=== PATIENT | male | born 1930 ===

== ENCOUNTER 2017-05-09 08:05 | Day surgery (SDC) | payer MEDICARE ==
[2017-05-09 09:44] VITALS: BMI 19.3
[2017-05-09 10:30] LABS: BASO # 0.1 K/uL (0.0-0.2); BASO % 0.6 % (0.0-2.0); EOS # 0.1 K/uL (0.0-0.7); EOS % 0.6 % (0.0-4.0); HEMOGLOBIN 13.2 g/dL (12.0-18.0); LYMPH # 1.4 K/uL (1.0-4.3); LYMPH % 14.4 % (20.0-40.0); MEAN CELL VOLUME 90.1 fL (80.0-94.0); MEAN CORPUSCULAR HEMOGLOBIN 29.8 pg (27.0-31.0); MEAN CORPUSCULAR HGB CONC 33.1 g/dL (33.0-37.0); MEAN PLATELET VOLUME 12.4 fL (7.2-11.7); MONO # 0.8 K/uL (0.0-0.8); MONO % 8.5 % (0.0-10.0); NEUT # 7.2 K/uL (1.8-7.0); NEUT % 75.9 % (50.0-75.0); RBC 4.44 Mil/uL (4.40-5.90); RED CELL DISTRIBUTION WIDTH 14.1 % (11.5-14.5); WHITE BLOOD COUNT 9.5 K/uL (4.8-10.8)
[2017-05-09 10:46] LABS: ALBUMIN 3.5 g/dL (3.5-5.0)
[2017-05-09 10:49] LABS: GFR AFRICAN-AMERICAN > 60; GFR NON-AFRICAN AMERICAN > 60
[2017-05-09 10:50] LABS: ALB/GLOB RATIO 0.9 (1.0-2.1); ALT/SGPT 68 U/L (21-72); AST/SGOT 147 U/L (17-59); BLOOD UREA NITROGEN 25 mg/dL (9-20); CALCIUM 9.3 mg/dl (8.6-10.4)
[2017-05-09] MEDS ORDERED: Rocuronium 10 mg/ml (10 ml) ONE (11:14)
[2017-05-09] MEDS ORDERED: Propofol 10 mg/ml Inj (20 ML) ONE (11:14)
[2017-05-09] MEDS ORDERED: Succinylcholine Chloride 20 mg/ml Syr (5 ml) IV ONE (11:23)
--- NOTE | 2017-05-09 11:37 | CP.SDSHP ---
Same Day Surgery H & P - History Proposed Procedure: EGDEUSERCP Pre-Op Diagnosis: Biliary stricture, Chronic pancreatitis - Previous Medical/Surgical History Previous Surgical History: ERCP with stent - Allergies Allergies: Allergies No Known Allergies Allergy (Verified 01/27/17 09:27) - Physical Exam General Appearance: nl Vital Signs: Vital Signs 05/09/17 10:19 Temperature 97.6 F Pulse Rate 71 Respiratory 19 Rate Blood Pressure 139/66 O2 Sat by Pulse 99 Oximetry Mental Status: Alert & Oriented x3 Neuro: WNL Heart: WNL Lungs: WNL GI: WNL - {Optional Preform as Required} Abdomen: WNL - Impression Impression: Pancreatitis. Biliary stricture. Gallstones Pt. Evaluated Today:Candidate for Anesthesia & Procedure: Yes - Date & Time Date: 05/09/17 Time: 11:37 Short Stay Discharge - Short Stay Discharge Admitting Diagnosis/Reason for Visit: AUTOIMMUNE PANCREATITIS,PANCREATIC LESION Disposition: HOME/ ROUTINE
[2017-05-09] MEDS ORDERED: Indomethacin 50 MG Suppository PR ONE (14:21)
[2017-05-09] MEDS ORDERED: Iohexol 240 (50 ml) ONE (14:21)
[2017-05-09 14:56] VITALS: RESP 12; O2SAT 100
[2017-05-09 15:01] VITALS: PULSE 61
[2017-05-09 15:06] VITALS: BP 159/74; TEMP 98
--- NOTE | 2017-05-10 11:48 | RAD ---
PROCEDURE: HISTORY: Biliary stent exchange - plastic for metal COMPARISON: None TECHNIQUE: Total fluoroscopic time utilized during the procedure: 39.7 seconds. Total dose 0.47962 mGy cm squared FINDINGS: Submitted images from the current procedure: 12 Please refer to the physician's notes performing the procedure. Metallic stent aligns over distal common bile duct segmental narrowing. IMPRESSION: Less than 1 hour fluoroscopic time utilized during performance of the procedure
== END 2017-05-09 14:50 | disposition home or self-care (01) ==
LOC: C.ENDO 08:05
PROVIDERS: ATTEND Internal Medicine
DX: K86.1 Other chronic pancreatitis (principal); K86.9 Disease of pancreas, unspecified; K83.1 Obstruction of bile duct; K29.60 Other gastritis without bleeding; K80.21 Calculus of gallbladder without cholecystitis with obstruction; K85.90 Acute pancreatitis without necrosis or infection, unspecified
CPT/HCPCS: 36415; 43239; 43276; 76000; 80053; 82787; 82948; 85025; 86301; 88305; C1876; J2001; J2405; J2704; J3010; Q9966